=== PATIENT | female | born 1995 | race Caucasian/White ===

== ENCOUNTER 2016-06-20 13:15 | Emergency (ER) | payer OTHER ==
[~2016-06-20] VITALS: Ht 147.3 cm; Wt 42.2 kg
[2016-06-20 15:03] LABS: HEMATOCRIT 35.7 % (36.0-46.0); MCH 31.3 PG (29.0-34.0); MCHC 33.6 G/DL (30.0-36.0); MEAN PLAT.VOLUME 11.3 uM^3 (9.5-12.4); PLATELET COUNT 186 K/uL (156-360); RBC DIS.WIDTH-SD 39.8 % (39-53); RED BLOOD COUNT 3.84 M/uL (3.80-5.20); WHITE BLOOD COUNT 8.1 K/uL (4.1-10.2)
[2016-06-20 15:11] LABS: CHLORIDE 104 mEq/L (99-109); POTASSIUM 4.1 mEq/L (3.7-5.4); SODIUM 138 mEq/L (136-147)
[2016-06-20 15:13] LABS: GLUCOSE 75 mg/dL (70-99)
[2016-06-20 15:14] LABS: ANION GAP 11 MEQ/L (2-14)
[2016-06-20 15:15] LABS: TOTAL BILIRUBIN 0.3 mg/dL (0.0-1.0)
[2016-06-20 15:16] LABS: ALKALINE PHOSPHATASE 60 IU/L (3-129); GFR ESTIMATE (CALCULATED) > 59 mL/min/
[2016-06-20 15:18] LABS: UREA NITROGEN (BUN) 8 mg/dL (9-23)
[2016-06-20 15:20] LABS: LIPASE 11 U/L (1.0-51.0)
[2016-06-20 15:57] LABS: ADD MIUA? YES; BILIRUBIN NEGATIVE; BLOOD NEGATIVE; COLOR YELLOW ((YELLOW)); GLUCOSE (STRIP) NEGATIVE; KETONES NEGATIVE; LEUKOCYTES NEGATIVE; NITRITE NEGATIVE; PROTEIN (STRIP) NEGATIVE; SPECIFIC GRAVITY 1.019 (1.000-1.030); UROBILINOGEN 0.2 MG/DL (0.2-1.0)
[2016-06-20 16:10] LABS: BACTERIA RARE /HPF; EPITHELIAL CELLS RARE /HPF; MUCUS TRACE /LPF; RED BLOOD CELLS 0-5 /HPF (0-5); UCUL ADDED? NO; WHITE BLOOD CELLS 0-5 /HPF (0-5)
[2016-06-20] MEDS ORDERED: ZOFRAN ODT4 MG PO (17:23)
[2016-06-20 17:43] VITALS: BP 121/73
== END 2016-06-20 17:44 | disposition home or self-care (01) ==
LOC: EME 13:15
PROVIDERS: Nurse Practitioner Family
DX: O20.0 Threatened abortion (principal); R10.30 Lower abdominal pain, unspecified; R10.10 Upper abdominal pain, unspecified; Z3A.14 14 weeks gestation of pregnancy
CPT/HCPCS: 76801; 80053; 81003; 83690; 84702; 85027; 86900; 86901; 99281; 99284